=== PATIENT | male | born 1980 | race African-American/Black ===

== ENCOUNTER 2018-10-22 23:34 | Observation (INO) | payer OTHER ==
[2018-10-23] MEDS ORDERED: PERCOCET 5/325 PO ONE (00:01)
--- NOTE | 2018-10-23 00:02 | Emergency Department Report ---
HPI - General Chief Complaint: Extremity Injury, Upper Time Seen by Provider: 10/23/18 00:00 - HPI HPI: 38 YO MALE COMES TO ACC WITH SLING ON R ARM; PLACED IN TRIAGE. CO RA PAIN P FALLING 15' FROM LADDER LANDING ON ARM. RADIAL/ULNAR PULSE INTACT. HAND WARM. WITNESSED FALL DENIES OTHER PAIN OR INJURY; NO LOC. ABC INTACT VSS XRAY ORDERED ED Past Medical Hx - Past Medical History Previous Medical History?: Yes Additional medical history: Gout - Surgical History Past Surgical History?: Yes - Social History Smoking Status: Never Smoker Substance Use Type: None ED Review of Systems ROS: Stated complaint: POSS BROKEN RT ARM Other details as noted in HPI Comment: All other systems reviewed and negative Physical Exam - Physical Exam Vital Signs: Vital Signs 10/22/18 23:39 Temperature 98.9 F Pulse Rate 84 Respiratory 18 Rate Blood Pressure 116/75 O2 Sat by Pulse 93 Oximetry Physical Exam: A/O X 4 NO BLEEDING/WOUNDS R ARM SWOLLEN AND DEFORMED RAD/ULNAR PULSE PLUS 2 HAND WARM RAPID CAP REFILL ED Course Vital Signs 10/22/18 23:39 Temperature 98.9 F Pulse Rate 84 Respiratory 18 Rate Blood Pressure 116/75 O2 Sat by Pulse 93 Oximetry ED Medical Decision Making - Radiology Data Radiology results: report reviewed, image reviewed MIDSHAFT ULNAR/RADIAL FRACTURE WITH ANGULATION - Medical Decision Making XRAY NOTED MOVED TO ER MAIN FOR MOD SEDATION/REDUCTION/SPLINT AND DISPO. - Differential Diagnosis RO FX Critical care attestation.: If time is entered above; I have spent that time in minutes in the direct care of this critically ill patient, excluding procedure time. ED Disposition Clinical Impression: Fracture, ulna, shaft, Right radial fracture, Fall Disposition: - TO HOME OR SELFCARE Is pt being admited?: No Does the pt Need Aspirin: No Condition: Stable Referrals: PRIMARY CARE, [Primary Care Provider] - 3-5 Days Time of Disposition: 00:45
[2018-10-23] MEDS ORDERED: DILAUDID IV ONE ×3 (00:34→04:45)
[2018-10-23] MEDS ORDERED: NACL 0.9% 1000 ML 1,000 ML IV ONE (00:34)
--- NOTE | 2018-10-23 00:53 | XRay Report ---
RIGHT FOREARM 2 VIEWS [id number] INDICATION: Fall/ right forearm swelling COMPARISON: None FINDINGS: Elbow is excluded on the lateral view. Transverse fractures are seen of the distal shafts o f the radius and ulna, both with dorsal displacement and overriding as well as mild lateral displacem ent. There is slight ventral and mild lateral angulation. No obvious dislocation is seen. The radial fracture appears mildly angulated. A small bony density is noted near the radial fracture site in the soft tissues which presumably is from the fracture though is somewhat and conceivably coul d be a foreign body if there is been penetrating injury. Signer Name: Aldo Pena MD Signed: 10/23/2018 12:48 AM Workstation Name: [id number]
[2018-10-23] MEDS ORDERED: DILAUDID ONE (03:02)
[2018-10-23 04:48] LABS: Basophils % (Auto) 0.3 % (0.0-1.8); Eosinophils % (Auto) 0.1 % (0.0-4.3); Hematocrit 44.4 % (35.5-45.6); Hemoglobin 14.8 gm/dl (11.8-15.2); Lymphocytes # (Auto) 0.9 K/mm3 (1.2-5.4); Lymphocytes % (Auto) 8.2 % (13.4-35.0); Mean Corpuscular HGB Conc 33 % (32-34); Mean Corpuscular Volume 93 fl (84-94); Monocytes # (Auto) 0.4 K/mm3 (0.0-0.8); Monocytes % (Auto) 3.5 % (0.0-7.3); Platelet Count 168 K/mm3 (140-440); Red Blood Count 4.76 M/mm3 (3.65-5.03); Red Cell Distribution Width 12.8 % (13.2-15.2)
[2018-10-23 05:05] LABS: Alanine Aminotransferase 23 units/L (7-56); Albumin 4.5 g/dL (3.9-5); BUN/Creatinine Ratio 40; Blood Urea Nitrogen 24 mg/dL (9-20); Calcium 8.9 mg/dL (8.4-10.2); Hemolysis Index 8
[2018-10-23] MEDS ORDERED: SODIUM CHLORIDE FLUSH SYRINGE 10 ML IV PRN (05:05)
[2018-10-23] MEDS ORDERED: MORPHINE IV PRN (05:05)
[2018-10-23] MEDS ORDERED: TYLENOL PO PRN (05:05)
[2018-10-23] MEDS ORDERED: ZOFRAN IV PRN ×2 (05:05→13:00)
--- NOTE | 2018-10-23 05:06 | History and Physical Report ---
Medications and Allergies Allergies Allergy/AdvReac Type Severity Reaction Status Date / Time No Known Allergies Allergy Unverified 10/22/18 23:50 Exam - Constitutional Vitals: Temp Pulse Resp BP Pulse Ox 98.9 F 86 17 121/72 96 10/22/18 23:39 10/23/18 04:46 10/23/18 04:46 10/23/18 04:46 10/23/18 04:46 Results - Labs CBC & Chem 7: 10/23/18 04:36 10/23/18 04:36 Labs: Abnormal lab results 10/23/18 10/23/18 Range/Units 04:36 04:36 WBC 11.4 H (4.5-11.0) K/mm3 RDW 12.8 L (13.2-15.2) % Lymph % (Auto) 8.2 L (13.4-35.0) % Lymph # 0.9 L (1.2-5.4) K/mm3 Seg Neutrophils % 87.9 H (40.0-70.0) % Seg Neutrophils # 10.0 H (1.8-7.7) K/mm3 Sodium 136 L (137-145) mmol/L Chloride 97.6 L (98-107) mmol/L BUN 24 H (9-20) mg/dL Creatinine 0.6 L (0.8-1.5) mg/dL Glucose 176 H (75-100) mg/dL
[2018-10-23 05:09] LABS: Partial Thromboplastin Time 25.3 Sec. (24.2-36.6)
[2018-10-23 05:11] LABS: INR 0.94 (0.87-1.13)
--- NOTE | 2018-10-23 05:32 | History and Physical Report ---
History of Present Illness Date of examination: 10/23/18 History of present illness: 38-year-old man with a history of gout comes emergency room with complaint of pain in the left arm. He fell off a ladder and subsequently landed on the right side, x-rays show fracture of the ulnar and radius Review Of Systems: Constitutional: no weight loss, fever, chills Ears, eyes, nose, mouth and throat: no nasal congestion, no nasal discharge, no sinus pressure, blurry vision, diplopia Neck: No neck pain or rigidity. Cardiovascular: No palpitations, chest pain Respiratory: No shortness of breath, cough Gastrointestinal: No hematochezia, abdominal pain Genitourinary : no dysuria, frequency , hematuria Musculoskeletal: no muscle ache , joint pain Integumentary: no rash, no pruritis Neurological: no parathesias, focal weakness Endocrine: no cold or heat intolerance, no polyuria or polydipsia Hematologic/Lymphatic: no easy bruising, no easy bleeding, no gland swelling Allergic/Immunologic: no urticaria, no angioedema. PAST MEDICAL HISTORY: gout PAST SURGICAL HISTORY:none FAMILY HISTORY:hypertension, diabetes SOCIAL HISTORY: Denies tobacco, drugs, alcohol Medications and Allergies Allergies Allergy/AdvReac Type Severity Reaction Status Date / Time Latex, Natural Rubber AdvReac BRUISING Verified 10/23/18 13:23 Home Medications Medication Instructions Recorded Confirmed Last Taken Type Cephalexin [Keflex] 750 mg PO TID #30 capsule 10/23/18 Unknown Rx oxyCODONE /ACETAMINOPHEN [Percocet 1 tab PO Q4HR #30 tab 10/23/18 Unknown Rx 5/325] Active Meds: Active Medications Acetaminophen (Tylenol) 650 mg PO Q4H PRN PRN Reason: Pain MILD(1-3)/Fever >100.5/LEIVA Enoxaparin Sodium (Lovenox) 40 mg SUB-Q QDAY RENALDO Sodium Chloride (Nacl 0.9% 1000 Ml) 1,000 mls @ 100 mls/hr IV DIRECT RENALDO Morphine Sulfate (Morphine) 2 mg IV Q4H PRN PRN Reason: Pain, Moderate (4-6) Ondansetron HCl (Zofran) 4 mg IV Q8H PRN PRN Reason: Nausea And Vomiting Sodium Chloride (Sodium Chloride Flush Syringe 10 Ml) 10 ml IV BID RENALOD Sodium Chloride (Sodium Chloride Flush Syringe 10 Ml) 10 ml IV PRN PRN PRN Reason: LINE FLUSH Exam - Physical Exam Narrative exam: General Apperance: The patient sitting in bed no acute distress HEENT: Normocephalic, atraumatic. Pupils equally round and reactive to light, extraocular movement intact, and no sclericterus or JVD or thyromegaly or nodule. Neck supple, no carotid bruit, mucous membranes moist, no exudate or erythema Heart: S1-S2, regular is rhythm Lungs: Clear to auscultation bilaterally, breathing comfortable Abdomen: Positive bowel sounds, soft, nontender, nondistended, no organomegaly Extremities: No edema cyanosis clubbing Skin: no rash, nodule, warm and dry Neuro:CN 2 -12 intact, motor/sensory intact, speech is fluent - Constitutional Vitals: Temp Pulse Resp BP Pulse Ox 98.9 F 86 17 121/72 96 10/22/18 23:39 10/23/18 04:46 10/23/18 04:46 10/23/18 04:46 10/23/18 04:46 Results - Labs CBC & Chem 7: 10/23/18 04:36 10/23/18 04:36 Labs: Abnormal lab results 10/23/18 10/23/18 Range/Units 04:36 04:36 WBC 11.4 H (4.5-11.0) K/mm3 RDW 12.8 L (13.2-15.2) % Lymph % (Auto) 8.2 L (13.4-35.0) % Lymph # 0.9 L (1.2-5.4) K/mm3 Seg Neutrophils % 87.9 H (40.0-70.0) % Seg Neutrophils # 10.0 H (1.8-7.7) K/mm3 Sodium 136 L (137-145) mmol/L Chloride 97.6 L (98-107) mmol/L BUN 24 H (9-20) mg/dL Creatinine 0.6 L (0.8-1.5) mg/dL Glucose 176 H (75-100) mg/dL Assessment and Plan forearm xray reviewed Assessment Fracture of ulna/rdius Gout Plan Admit to medicine Nothing by mouth, IV fluids, consult orthopedic Pain medication IV, DVT prophylaxis
[2018-10-23] MEDS ORDERED: DILAUDID IV PRN ×2 (05:34→12:13)
[2018-10-23] MEDS ORDERED: NACL 0.9% 1000 ML 1,000 ML IV SCH (06:00)
--- NOTE | 2018-10-23 06:49 | Emergency Department Report ---
Upper Extremity - HPI Chief Complaint: Extremity Injury, Upper Stated Complaint: POSS BROKEN RT ARM Time Seen by Provider: 10/23/18 00:00 Upper Extremity: Right Forearm Occurred When: Today Mechanism: Fall Severity: severe Symptoms: Yes Pain with Movement, Yes Deformity, Yes Limited Range of Movement, Yes Swelling, Yes Laceration or Abrasion, No Numbness, No Weakness, No Bruising/Ecchymosis Other History: Mr. Burnette is a healthy right-hand dominant male with history of gout who injured his right forearm after falling from ladder. He was in his garage securing installing security camera. The ladder slipped. He fell onto hard concrete pavement. NO other injury. 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 No distress. Alert and acting appropriately. General: Well-appearing, no acute distress HEENT: Normocephalic atraumatic anicteric sclera Nose: no rhinorrhea Oropharynx: Clear mucous membranes no lesions Neck: supple, no meningismus Chest: Clear to auscultation bilaterally no rales rhonchi no wheezes Cardiac: Regular rate and rhythm no murmurs no rubs no gallops Abdomen: Soft nontender nondistended positive bowel sounds no guarding Extremities: Right forearm 2+ radial pulse able to move fingers are limited due to pain obvious deformity midshaft of puncture wound oozing blood at the fracture site Neuro: Moves all extremities -4, no gross deficits Psychiatric: Alert and oriented -4 normal affect normal judgment normal insight Head and Torso: No HEENT Abnormality, No Neck Tenderness, No Chest/Lungs Abnormality, No Abdominal Tenderness, No Back Tenderness Shoulder Exam: Yes Normal Range of Motion in Shoulder, No Shoulder Tenderness, No Clavicle Tenderness, No Shoulder Deformity, No AC Joint Tenderness Arm Exam: Yes Arm/Humerus Tenderness, Yes Arm Deformity Elbow: Yes Normal Range of Motion in Elbow, No Elbow Tenderness, No Elbow Deformity Forearm: Yes Forearm Tenderness, Yes Forearm Deformity, Yes Pain with Pronation, Yes Pain with Supination Wrist: Yes Normal ROM in Wrist, No Wrist Tenderness, No Wrist Deformity, No Snuffbox Tenderness, No Pain with Axial Thumb Compression Hand: Yes Normal ROM in Digit(s), No Hand Tenderness, No Hand Deformity, No Digit Tenderness, No Digit(s) Deformity, No Tendon Dysfunction CMS Exam: Yes Broken Skin (broken skin with persistent bloody oozing), Yes Normal Distal Pulses, Yes Normal Capillary Refill, Yes Normal Distal Sensation ED Course Vital Signs 10/22/18 10/23/18 10/23/18 23:39 02:58 03:37 Temperature 98.9 F Pulse Rate 84 92 H 87 Respiratory 18 16 Rate Blood Pressure 116/75 Blood Pressure 124/72 124/87 [Left] O2 Sat by Pulse 93 Oximetry 10/23/18 10/23/18 04:19 04:46 Temperature Pulse Rate 86 Respiratory 15 17 Rate Blood Pressure Blood Pressure 121/72 [Left] O2 Sat by Pulse 98 96 Oximetry ED Medical Decision Making - Lab Data Result diagrams: 10/23/18 04:36 10/23/18 04:36 Laboratory Results - last 24 hr 10/23/18 10/23/18 10/23/18 04:36 04:36 04:36 WBC 11.4 H RBC 4.76 Hgb 14.8 Hct 44.4 MCV 93 MCH 31 MCHC 33 RDW 12.8 L Plt Count 168 Lymph % (Auto) 8.2 L Ray % (Auto) 3.5 Eos % (Auto) 0.1 Baso % (Auto) 0.3 Lymph # 0.9 L Ray # 0.4 Eos # 0.0 Baso # 0.0 Seg Neutrophils % 87.9 H Seg Neutrophils # 10.0 H PT 12.3 INR 0.94 APTT 25.3 Sodium 136 L Potassium 3.9 Chloride 97.6 L Carbon Dioxide 26 Anion Gap 16 BUN 24 H Creatinine 0.6 L Estimated GFR > 60 BUN/Creatinine Ratio 40 Glucose 176 H Calcium 8.9 Total Bilirubin 0.40 AST 21 ALT 23 Alkaline Phosphatase 59 Total Protein 7.8 Albumin 4.5 Albumin/Globulin Ratio 1.4 - Radiology Data Radiology results: report reviewed, image reviewed interpreted by me: Right forearm fracture: Both bones severely displaced and rotated, fracture at the diaphysis of both the radius and ulna - Medical Decision Making Mr. Burnette presents with unstable open fracture of both bones of forearm. Tetanus booster and ancef ordered in the ED. Dr. Wynn orthopedic surgeon requested hospital admission. He'll take the patient to the operating room today. Admitted to the hospitalist service in stable condition Sugar tong splint was applied to the affected right upper extremity extremity under my supervision. After application the extremity was neurovascularly intact with acceptable alignment. Critical care attestation.: If time is entered above; I have spent that time in minutes in the direct care of this critically ill patient, excluding procedure time. ED Disposition Clinical Impression: Fracture, ulna, shaft, Right radial fracture, Fall, Open fracture of forearm Disposition: OP ADMIT IP TO THIS HOSP Is pt being admited?: Yes Does the pt Need Aspirin: No Condition: Stable
[2018-10-23] MEDS ORDERED: BOOSTRIX IM ONE (07:00)
[2018-10-23] MEDS ORDERED: ceFAZolin 2 GM in NACL 0.9% 100 ML IV ONE (07:00)
[2018-10-23] MEDS ORDERED: SODIUM CHLORIDE FLUSH SYRINGE 10 ML IV SCH (10:00)
[2018-10-23] MEDS ORDERED: LOVENOX SUB-Q SCH (10:00)
--- NOTE | 2018-10-23 12:07 | Anesthesia Day of Surgery ---
Anesthesia Day of Surgery - Day of Surgery Patient Examined: Yes Patient H&P Reviewed: Yes Patient is NPO: Yes
--- NOTE | 2018-10-23 12:09 | Anesthesia Consultation ---
Anesthesia Consult and Med Hx Date of service: 10/23/18 - Airway Anesthetic Teeth Evaluation: Good ROM Head & Neck: Adequate Mental/Hyoid Distance: Adequate Mallampati Class: Class II Intubation Access Assessment: Probably Good - Pre-Operative Health Status ASA Pre-Surgery Classification: ASA2 Proposed Anesthetic Plan: General Nerve Block: AX - Additional Comments Anesthesia Medical History Comments: Gout
[2018-10-23] MEDS ORDERED: MARCAINE-EPI 0.25%-1:200,000 INFILTRATI ONE (12:25)
[2018-10-23] MEDS ORDERED: MARCAINE-EPI/PF 0.5%-1:200,000 INFILTRATI ONE (12:33)
[2018-10-23] MEDS ORDERED: TYLENOL PO NR (13:00)
[2018-10-23] MEDS ORDERED: VERSED IV NR (13:00)
[2018-10-23] MEDS ORDERED: SUBLIMAZE IV NR (13:00)
[2018-10-23] MEDS ORDERED: SUBLIMAZE IV PRN (13:00)
[2018-10-23] MEDS ORDERED: NEURONTIN PO NR (13:00)
[2018-10-23] MEDS ORDERED: ANCEF/STERILE WATER 2 GM/20 ML IV NR (13:00)
[2018-10-23] MEDS ORDERED: LACTATED RINGERS 1,000 ML IV SCH (13:00)
[2018-10-23] MEDS ORDERED: XYLOCAINE MPF 2% ONE (13:13)
[2018-10-23] MEDS ORDERED: SUBLIMAZE ONE (13:13)
[2018-10-23] MEDS ORDERED: DIPRIVAN 10 MG/ML IV ONE (13:14)
[2018-10-23] MEDS ORDERED: ANCEF/NS 1 GM/50 ML 1 GM/50 ML BAG IV ONE (13:30)
--- NOTE | 2018-10-23 13:45 | Progress Note ---
Assessment and Plan Assessment and plan: Patient is a 38-year-old man with a history of gout comes emergency room with complaint of pain in the left arm. He fell off a ladder and subsequently landed on the right side, x-rays show fracture of the ulnar and radius Acute Fracture of Right ulna/radius after fall: Ortho following, OR today, pain control Gout: continue medication DVT prophylaxis going for surgery today. prolonged services 31 minutes History Interval history: Patient was seen and examined. Follow-up on current diagnosis of right forearm fracture. No overnight events reported to me. Patient denies any chest pain, shortness breath, nausea/vomiting or severe headaches. Imaging, nursing note, chart, labs and old chart reviewed. Discussed with patient. at bedside. Hospitalist Physical - Physical exam Narrative exam: Gen: WDWN, NAD, Awake, Alert, Orientated x 3 (speaks Malay well to me) HEENT: NCAT, EOMI, PERRL, OP Clear Neck: supple, no adenopathy, no thyromegaly, no JVD CVS/Heart: RRR, normal S1S2, pulses present bilaterally Chest/Lungs: CTA B, Symmetrical chest expansion, good air entry bilaterally GI/Abdomen: soft, NTND, good bowel sounds, no guarding or rebound /Bladder: no suprapubic tenderness, no CVA or paraspinal tenderness Extermity/Skin: no c/c/e, no obvious rash MSK: FROM x 3, right arm in sling, limited range of motion but cap refill <2s Neuro: CN 2-12 grossly intact, no new focal deficits Psych: calm - Constitutional Vitals: Temp Pulse Resp BP Pulse Ox 97.9 F 73 14 125/76 99 10/23/18 08:02 10/23/18 08:02 10/23/18 12:59 10/23/18 08:02 10/23/18 08:02 Results - Labs CBC & Chem 7: 10/23/18 04:36 10/23/18 04:36 Labs: Laboratory Last Values WBC 11.4 K/mm3 (4.5-11.0) H 10/23/18 04:36 RBC 4.76 M/mm3 (3.65-5.03) 10/23/18 04:36 Hgb 14.8 gm/dl (11.8-15.2) 10/23/18 04:36 Hct 44.4 % (35.5-45.6) 10/23/18 04:36 MCV 93 fl (84-94) 10/23/18 04:36 MCH 31 pg (28-32) 10/23/18 04:36 MCHC 33 % (32-34) 10/23/18 04:36 RDW 12.8 % (13.2-15.2) L 10/23/18 04:36 Plt Count 168 K/mm3 (140-440) 10/23/18 04:36 Lymph % (Auto) 8.2 % (13.4-35.0) L 10/23/18 04:36 [place] % (Auto) 3.5 % (0.0-7.3) 10/23/18 04:36 Eos % (Auto) 0.1 % (0.0-4.3) 10/23/18 04:36 Baso % (Auto) 0.3 % (0.0-1.8) 10/23/18 04:36 Lymph # 0.9 K/mm3 (1.2-5.4) L 10/23/18 04:36 [place] # 0.4 K/mm3 (0.0-0.8) 10/23/18 04:36 Eos # 0.0 K/mm3 (0.0-0.4) 10/23/18 04:36 Baso # 0.0 K/mm3 (0.0-0.1) 10/23/18 04:36 Seg Neutrophils % 87.9 % (40.0-70.0) H 10/23/18 04:36 Seg Neutrophils # 10.0 K/mm3 (1.8-7.7) H 10/23/18 04:36 PT 12.3 Sec. (12.2-14.9) 10/23/18 04:36 INR 0.94 (0.87-1.13) 10/23/18 04:36 APTT 25.3 Sec. (24.2-36.6) 10/23/18 04:36 Sodium 136 mmol/L (137-145) L 10/23/18 04:36 Potassium 3.9 mmol/L (3.6-5.0) 10/23/18 04:36 Chloride 97.6 mmol/L (98-107) L 10/23/18 04:36 Carbon Dioxide 26 mmol/L (22-30) 10/23/18 04:36 16 mmol/L 10/23/18 04:36 BUN 24 mg/dL (9-20) H 10/23/18 04:36 0.6 mg/dL (0.8-1.5) L 10/23/18 04:36 Estimated GFR > 60 ml/min 10/23/18 04:36 40 % 10/23/18 04:36 Glucose 176 mg/dL (75-100) H 10/23/18 04:36 Calcium 8.9 mg/dL (8.4-10.2) 10/23/18 04:36 0.40 mg/dL (0.1-1.2) 10/23/18 04:36 AST 21 units/L (5-40) 10/23/18 04:36 ALT 23 units/L (7-56) 10/23/18 04:36 59 units/L (35-129) 10/23/18 04:36 7.8 g/dL (6.3-8.2) 10/23/18 04:36 4.5 g/dL (3.9-5) 10/23/18 04:36 1.4 % 10/23/18 04:36 Active Medications - Current Medications Current Medications: Generic Name Dose Route Start Last Admin Trade Name Freq PRN Reason Stop Dose Admin Acetaminophen 650 mg 10/23/18 05:05 Tylenol PO Q4H PRN Pain MILD(1-3)/Fever >100.5/LEIVA Acetaminophen 975 mg 10/23/18 13:00 10/23/18 12:50 Tylenol PO 10/23/18 18:00 975 mg ONCE NR Administration Enoxaparin Sodium 40 mg 10/23/18 10:00 Lovenox SUB-Q QDAY RENALDO Fentanyl 50 mcg 10/23/18 13:00 Sublimaze IV 10/23/18 18:00 Q5MIN PRN Pain , Severe (7-10) Fentanyl 100 mcg 10/23/18 13:00 10/23/18 12:59 Sublimaze IV 10/23/18 18:00 100 mcg ONCE NR Administration Gabapentin 600 mg 10/23/18 13:00 10/23/18 12:50 Neurontin PO 10/23/18 16:00 600 mg PREOP NR Administration Hydromorphone HCl 1 mg 10/23/18 05:34 10/23/18 09:54 Dilaudid IV 1 mg Q4H PRN Administration Pain , Severe (7-10) Hydromorphone HCl 0.5 mg 10/23/18 12:13 Dilaudid IV 10/23/18 23:00 Q10MIN PRN Pain , Severe (7-10) Sodium Chloride 1,000 mls @ 100 mls/hr 10/23/18 06:00 10/23/18 05:36 Nacl 0.9% 1000 Ml IV 100 mls/hr DIRECT RENALDO Administration Lactated Ringer's 1,000 mls @ 125 mls/hr 10/23/18 13:00 10/23/18 12:45 Lactated Ringers IV 125 mls/hr DIRECT RENALDO Administration Cefazolin Sodium 1 gm in 50 mls @ 100 mls/hr 10/23/18 13:30 Ancef/Ns 1 Gm/50 Ml IV 10/23/18 13:59 PREOP ONE Protocol Midazolam HCl 2 mg 10/23/18 13:00 10/23/18 12:58 Versed IV 10/23/18 23:59 2 mg PREOP NR Administration Ondansetron HCl 4 mg 10/23/18 05:05 10/23/18 11:38 Zofran IV 4 mg Q8H PRN Administration Nausea And Vomiting Ondansetron HCl 4 mg 10/23/18 13:00 Zofran IV 10/23/18 17:00 ONCE PRN Nausea And Vomiting Sodium Chloride 10 ml 10/23/18 10:00 10/23/18 09:54 Sodium Chloride Flush Syringe 10 Ml IV 10 ml BID RENALDO Administration Sodium Chloride 10 ml 10/23/18 05:05 Sodium Chloride Flush Syringe 10 Ml IV PRN PRN LINE FLUSH
[2018-10-23] MEDS ORDERED: LACTATED RINGERS 1,000 ML ONE (15:29)
--- NOTE | 2018-10-23 15:35 | Consultation ---
History of Present Illness - [facility] Consult date: 10/23/18 Consult reason: fracture History of present illness: 38-year-old male complaining of right forearm pain and deformity after a fall earlier today patient states he was working in his garage installing as a security camera when he lost his balance and fell from a ladder onto a arch outstretched arm. He was seen in the emergency department where x-rays taken revealed a displaced both bone fracture there are no other complaints Medications and Allergies Allergies Allergy/AdvReac Type Severity Reaction Status Date / Time Latex, Natural Rubber AdvReac BRUISING Verified 10/23/18 13:23 Home Medications Medication Instructions Recorded Confirmed Last Taken Type Cephalexin [Keflex] 750 mg PO TID #30 capsule 10/23/18 Unknown Rx oxyCODONE /ACETAMINOPHEN [Percocet 1 tab PO Q4HR #30 tab 10/23/18 Unknown Rx 5/325] Active Meds: Active Medications Acetaminophen (Tylenol) 650 mg PO Q4H PRN PRN Reason: Pain MILD(1-3)/Fever >100.5/LEIVA Acetaminophen (Tylenol) 975 mg PO ONCE NR Stop: 10/23/18 18:00 Last Admin: 10/23/18 12:50 Dose: 975 mg Documented by: Enoxaparin Sodium (Lovenox) 40 mg SUB-Q QDAY RENALDO Last Admin: 10/23/18 15:29 Dose: Not Given Documented by: Fentanyl (Sublimaze) 50 mcg IV Q5MIN PRN PRN Reason: Pain , Severe (7-10) Stop: 10/23/18 18:00 Fentanyl (Sublimaze) 100 mcg IV ONCE NR Stop: 10/23/18 18:00 Last Admin: 10/23/18 12:59 Dose: 100 mcg Documented by: Gabapentin (Neurontin) 600 mg PO PREOP NR Stop: 10/23/18 16:00 Last Admin: 10/23/18 12:50 Dose: 600 mg Documented by: Hydromorphone HCl (Dilaudid) 1 mg IV Q4H PRN PRN Reason: Pain , Severe (7-10) Last Admin: 10/23/18 09:54 Dose: 1 mg Documented by: Hydromorphone HCl (Dilaudid) 0.5 mg IV Q10MIN PRN PRN Reason: Pain , Severe (7-10) Stop: 10/23/18 23:00 Sodium Chloride (Nacl 0.9% 1000 Ml) 1,000 mls @ 100 mls/hr IV DIRECT RENALDO Last Admin: 10/23/18 05:36 Dose: 100 mls/hr Documented by: Lactated Ringer's (Lactated Ringers) 1,000 mls @ 125 mls/hr IV DIRECT RENALDO Last Admin: 10/23/18 12:45 Dose: 125 mls/hr Documented by: Midazolam HCl (Versed) 2 mg IV PREOP NR Stop: 10/23/18 23:59 Last Admin: 10/23/18 12:58 Dose: 2 mg Documented by: Ondansetron HCl (Zofran) 4 mg IV Q8H PRN PRN Reason: Nausea And Vomiting Last Admin: 10/23/18 11:38 Dose: 4 mg Documented by: Ondansetron HCl (Zofran) 4 mg IV ONCE PRN PRN Reason: Nausea And Vomiting Stop: 10/23/18 17:00 Sodium Chloride (Sodium Chloride Flush Syringe 10 Ml) 10 ml IV BID RENALDO Last Admin: 10/23/18 09:54 Dose: 10 ml Documented by: Sodium Chloride (Sodium Chloride Flush Syringe 10 Ml) 10 ml IV PRN PRN PRN Reason: LINE FLUSH Physical Examination - Physical exam Narrative exam: On physical examination significant musculoskeletal findings relates to the right upper extremity. Patient is noted to have abrasions to the volar surface of his forearm with obvious deformity and gross motion patient is tender on palpation compartments are soft there's good capillary refill distally Eyes: PERRL ENT: Positive: clear oral mucosa Respiratory effort: normal Respiratory: bilateral: CTA Rhythm: regular Heart Sounds: Positive: S1 & S2 General gastrointestinal: Positive: soft, non-tender, non-distended, normal bowel sounds Integumentary: clear, warm, dry Neurologic: Positive: CNII-XII intact, moves all extremities, gait normal. Negative: focal deficits - Cervical Spine Neck pain: none Tenderness with palpation: none Full ROM: yes ROM: flexion: normal ROM: extension: normal ROM: rotation right: normal ROM: rotation left: normal ROM: lateral flexion right: normal ROM: lateral flexion left: normal - Lumbar Spine Back pain: none Tenderness with palpation: none Appearance: normal Full ROM: yes ROM: flexion: normal ROM: extension: normal ROM: rotation right: normal ROM: rotation left: normal ROM: lateral flexion right: normal ROM: lateral flexion left: normal Assessment and Plan Displaced both bone fracture right forearm Recommendations He will require open reduction and internal fixation with plates and screws along with the IV antibiotics and oral anti-biotics for approximately 10-14 days
--- NOTE | 2018-10-23 15:42 | Procedure Note ---
Date of procedure: 10/23/18 Pre-op diagnosis: displaced both bone fracture right forearm Post-op diagnosis: same Procedure: Open reduction internal fixation right ulnar and radius Procedure The patient was brought to the OR after being given a scalene nerve block for postop pain management. He was placed on the OR table in a supine position following induction with mask anesthesia the patient's right upper extremity was prepped and draped in the usual sterile manner. A timeout procedure was done to identify the patient and the correct operative site. The arm was exsanguinated followed by inflation of the pneumatic tourniquet to 250 mmHg. A midline volar incision was made over the mid forearm this was taken down sharply through skin and subcutaneous the digit radius fracture was approached first using the flexor carpi radialis tendon as a landmark the incision was carried just medial to this structure down through the muscle the proximal fragment was seen and identified as well as the distal fragment using 2 bone clamps the radius fractures were manipulated into a reduced position next a 6-hole locked plate was applied with screws of various lengths next the ulnar fracture was approached after a muscle- splitting the fracture fragments were identified and again using the reduction clamps the ulnar fragments were manipulated and reduced and held with a 6-hole locking plate again screws of various lengths were applied C-arm fluoroscopy was then used to evaluate the reduction and placement of the hardware. The wound was then copiously irrigated and was closed in a standard routine fashion patient tolerated procedure and there were no complications Anesthesia: MAC, regional Surgeon: EKATERINA PARK Estimated blood loss: minimal Pathology: none Condition: stable Disposition: PACU
--- NOTE | 2018-10-23 16:01 | XRay Report ---
Right forearm, 2 views INDICATION: RT FOREARM FRACTURE/ORIF. COMPARISON: 10/23/2018 at 1203 hours IMPRESSION: The displaced fractures of the mid to distal radial and ulnar shafts have been internall y fixated with metal plate and screws. Alignment is anatomic. The soft tissues are mildly edematous. Please correlate with the procedural report by Dr. Wynn as needed. Signer Name: Emiliano Aponte Jr, MD Signed: 10/23/2018 3:57 PM Workstation Name: [id number]
--- NOTE | 2018-10-23 16:26 | Post Anesthesia Evaluation ---
- Post Anesthesia Evaluation Patient Participated: Yes Airway Patent: Yes Stable Respiratory Function: Yes Nausea/Vomiting: No Temp > 96.8F: Yes Pain Manageable: Yes Adequeate Hydration: Yes Anesthesia Complications: No Block Receding Appropriately: Not Applicable (Block for post-op pain. Sling provided.)
--- NOTE | 2018-10-23 18:05 | Discharge Summary ---
Providers - Providers Date of Admission: 10/23/18 06:14 Date of discharge: 10/23/18 Attending physician: ANABEL FINK 10/23/18 04:25 Consult to Physician [CONS] Stat Comment: Dr. Adams spoke with Dr. yWnn @ 0423 Consulting Provider: EKATERINA WYNN Physician Instructions: Reason For Exam: open forearm fracture Primary care physician: RECOVERY ANALYST Hospitalization Condition: Stable Hospital course: Patient is a 38-year-old man with a history of gout comes emergency room with complaint of pain in the left arm. He fell off a ladder and subsequently landed on the right side, x-rays show fracture of the ulnar and radius Acute Fracture of Right ulna/radius after fall: Ortho following, OR today, pain control Gout: continue medication DVT prophylaxis per Dr. Wynn surgery today, Dr. Wynn has cleared for discharge and asked that I give pat leno a script for keflex for open fracture Disposition: DC-01 TO HOME OR SELFCARE Time spent for discharge: 32 minutes Core Measure Documentation - Palliative Care Palliative Care/ Comfort Measures: Not Applicable - Core Measures Any of the following diagnoses?: none - VTE Discharge Requirements Deep Vein Thrombosis/Pulmonary Embolism Present on Admission: No Has pt received <5 days of overlap therapy or INR<2.0: No Anticoagulant overlap therapy prescribed at discharge: No Contraindication No Overlap Therapy order at DC: Not Indicated Exam - Physical Exam Narrative exam: Gen: WDWN, NAD, Awake, Alert, Orientated x 3 (speaks Afghan well to me) HEENT: NCAT, EOMI, PERRL, OP Clear Neck: supple, no adenopathy, no thyromegaly, no JVD CVS/Heart: RRR, normal S1S2, pulses present bilaterally Chest/Lungs: CTA B, Symmetrical chest expansion, good air entry bilaterally GI/Abdomen: soft, NTND, good bowel sounds, no guarding or rebound /Bladder: no suprapubic tenderness, no CVA or paraspinal tenderness Extermity/Skin: no c/c/e, no obvious rash MSK: FROM x 3, right arm in sling, limited range of motion but cap refill <2s Neuro: CN 2-12 grossly intact, no new focal deficits Psych: calm - Constitutional Vitals: Temp Pulse Resp BP Pulse Ox 97.8 F 89 16 136/85 97 10/23/18 16:39 10/23/18 16:39 10/23/18 16:39 10/23/18 16:39 10/23/18 16:39 Plan Activity: other (no strenous acitivity until cleared by Dr. Wynn) Diet: regular Wound: per your surgeon's advice Follow up with: PRIMARY CAREMD [Primary Care Provider] - 3-5 Days EKATERINA WYNN MD [Staff Physician] - 7 Days Prescriptions: Cephalexin [Keflex] 750 mg PO TID #30 capsule oxyCODONE /ACETAMINOPHEN [Percocet 5/325] 1 tab PO Q4HR #30 tab
[2018-10-23 19:54] VITALS: BP 122/68
== END 2018-10-23 18:45 | disposition home or self-care (01) ==
LOC: ED 23:34 → 3B-SURG 10-23 06:14 → INTOOBSV 10-23 06:14 → 3B-SURG 10-23 07:26
PROVIDERS: ADMIT Internal Medicine; ATTEND Internal Medicine
DX: S52.91XA Unspecified fracture of right forearm, initial encounter for closed fracture (principal); S52.201A Unspecified fracture of shaft of right ulna, initial encounter for closed fracture; M10.9 Gout, unspecified; W11.XXXA Fall on and from ladder, initial encounter; Y93.89 Activity, other specified; Y92.89 Other specified places as the place of occurrence of the external cause; Y99.8 Other external cause status; Z79.899 Other long term (current) drug therapy; Z79.01 Long term (current) use of anticoagulants; Z23 Encounter for immunization
CPT/HCPCS: 25575; 36415; 64450; 73090; 80053; 85025; 85610; 85730; 90715; 96365; 96375; 96376; 99284; C1713; G0008; G0378; J0690; J1170; J2250; J2405; J2704; J3010; J7030; J7120; 90471; 96361